=== PATIENT | male | born 1965 | race Caucasian/White ===

== ENCOUNTER → 2021-04-04 | Day surgery (SDC) | payer MEDICARE ==
[~2021-04-04] MED LIST: BUPIVACAINE HCL 0.5% INJ 30 ML VIAL INJ ONE; CLINDAMYCIN PHOS 900MG/ 50ML 50 ML IV ONE; DEXAMETHASONE SOD PHOS INJ 4 MG/ML VIAL ONE; FENTANYL CITRATE/PF 100MCG/2 ML INJ ONE; LIDOCAINE HCL 2% LOCAL INJ 5 ML SDV VIAL INJ ONE; MIDAZOLAM HCL 2 MG/2 ML VIAL ONE; ONDANSETRON HCL INJ 2MG/ML 2ML 2 MG/ML VIAL ONE; POVIDONE IODINE 0.05% 0.05 % ML PO ONE; PROPOFOL IV EMULSION 10 MG/ML 20 ML VIAL ONE; SEVOFLURANE INHAL SOLN 250 ML PEN BTL ONE
[2021-04-04 09:20] VITALS: BP 129/94
== END | disposition home or self-care (01) ==
LOC: OR 05:33
PROVIDERS: ATTEND Podiatrist Foot & Ankle Surgery
DX: M1A.9XX1 Chronic gout, unspecified, with tophus (tophi) (principal); R22.41 Localized swelling, mass and lump, right lower limb; Z01.810 Encounter for preprocedural cardiovascular examination; Z01.818 Encounter for other preprocedural examination; Z88.0 Allergy status to penicillin
CPT/HCPCS: 28039; 71046; 88304; 93005; J1100; J2001; J2250; J2405; J2704; J3010